=== PATIENT | female | born 2000 | race Caucasian/White ===

== ENCOUNTER 2020-11-15 08:41 | Outpatient (REF) | payer OTHER, SELFPAY | END 2020-11-15 08:42 | disposition home or self-care (01) | LOC: HO.LAB 08:41 | PROVIDERS: Visit Provider Advanced Practice Midwife | DX: Z01.419 Encounter for gynecological examination (general) (routine) without abnormal findings (principal); N94.4 Primary dysmenorrhea | CPT/HCPCS: 88142 ==

== ENCOUNTER 2021-06-04 12:40 | Outpatient (REF) | payer OTHER, SELFPAY ==
[2021-06-04 14:04] LABS: Baso%MD 0.9 %; Eos%MD 1.1 %; Hematocrit 37.1 % (37-47); Hemoglobin 12.6 g/dl (12.0-16.0); IG%MD 0.4 %; Lymph%MD 35.6 %; Mean Corpuscular Hemoglobin 29.5 pg (27.0-33.0); Mean Corpuscular Volume 86.9 fL (80-98); Mean Platelet Volume 11.1 fL (9.4-12.3); Platelet Count 233 X10*3/uL (160-400); Red Blood Count 4.27 X10*6/uL (4.20-5.50); Red Cell Distribution Width 11.9 % (11.0-16.0); White Blood Count 5.3 X10*3/uL (4.8-10.8)
[2021-06-04 14:23] LABS: Alanine Aminotransferase 14 U/L (0-31); Albumin Level 4.5 g/dL (3.5-5.0); Alkaline Phosphatase 67 U/L (39-117); Anion Gap 11 (12-20); Aspartate Amino Transferase 18 U/L (5-31); Bilirubin Total 0.5 mg/dL (0.0-1.0); Blood Urea Nitrogen 8 mg/dL (9-16); Calcium 9.6 mg/dL (8.4-10.2); Carbon Dioxide 24 mmol/L (22-29); Chloride 108 mmol/L (96-108); Estimated Glomerular Filt Rate > 60; Glucose Random 86 mg/dL (60-115); Potassium 3.8 mmol/L (3.3-5.1); Sodium 139 mmol/L (135-145); Total Protein 7.5 g/dL (6.5-8.0)
[2021-06-04 14:51] LABS: Band Neutrophils Percent 2 % (3-5); Lymphocytes Absolute Manual 1.4 X10*3/uL (0.6-4.8); Lymphocytes Percent Manual 27 % (20-40); Monocytes Absolute Manual 0.5 X10*3/uL (0.0-1.2); Monocytes Percent Manual 10 % (2-11); Neutrophils Absolute Manual 3.3 X10*3/uL (2.2-7.9); Neutrophils Percent Manual 61 % (45-73); RBC Morphology NORMAL
[2021-06-04 14:52] LABS: Erythrocyte Sedimentation Rate 5 MM/HR (0-20); Platelet Estimate NORMAL (NORMAL); Platelet Morphology Comment NORMAL
[2021-06-10 15:02] LABS: Anti Nuclear Antibody Pattern Nuclear, Speckled; Anti Nuclear Antibody Screen POSITIVE (NEGATIVE)
== END 2021-06-04 12:41 | disposition home or self-care (01) ==
LOC: HO.HMGCLDS 12:40
PROVIDERS: Visit Provider Physician Assistant Medical
DX: R23.3 Spontaneous ecchymoses (principal)
CPT/HCPCS: 36415; 80053; 85007; 85027; 85652; 86038; 86039

== ENCOUNTER → 2021-11-21 08:02 | Outpatient (BNVA) | payer OTHER, SELFPAY | PROVIDERS: Visit Provider Advanced Practice Midwife | DX: Z13.89 Encounter for screening for other disorder (principal) ==

== ENCOUNTER 2021-11-30 08:17 | Outpatient (REF) | payer OTHER, SELFPAY ==
[2021-11-30 08:46] LABS: MANUAL DIFF FLAG NO
[2021-11-30 09:41] LABS: Basophils Absolute Auto 0.1 X10*3/uL (0.0-0.2); Basophils Percent Auto 1.1 % (0-2); Eosinophils Absolute Auto 0.2 X10*3/uL (0.0-0.4); Eosinophils Percent Auto 3.2 % (0-4); Hematocrit 34.2 % (37.0-47.0); Hemoglobin 11.4 g/dl (12.0-16.0); Imm Gran Abs Auto 0.01 X10*3/uL (0.00-0.03); Imm Gran Pct Auto 0.2 % (0.0-0.4); Lymphocytes Absolute Auto 2.3 X10*3/uL (1.2-4.9); Lymphocytes Percent Auto 48.2 % (20-40); Mean Corpuscular HGB Conc 33.3 g/dl (31.0-35.0); Mean Corpuscular Hemoglobin 30.2 pg (27.0-33.0); Mean Corpuscular Volume 90.5 fL (80.0-98.0); Mean Platelet Volume 11.4 fL (9.4-12.3); Monocytes Absolute Auto 0.4 X10*3/uL (0.1-1.2); Monocytes Percent Auto 8.6 % (2-11); Neutrophils Absolute Auto 1.8 x10*3/uL (2.0-8.3); Neutrophils Percent Auto 38.7 % (45-73); Platelet Count 215 X10*3/uL (160-400); Red Blood Count 3.78 X10*6/uL (4.20-5.50); Red Cell Distribution Width 11.4 % (11.0-16.0); White Blood Count 4.8 X10*3/uL (4.8-10.8)
[2021-11-30 09:46] LABS: Appearance Urine HAZY; Color Urine YELLOW; Glucose Urine UA NEG (NEG); Leukocyte Esterase Urine NEG (NEG); Nitrite Urine NEG (NEG); PH 5.5 (5.0-8.0); Specific Gravity - Urine >= 1.030 (1.005-1.025); UACC Culture Trigger NO; Urine Blood 3+ (NEG); Urine Ketones NEG (NEG); Urine Protein NEG (NEG-TRACE)
[2021-11-30 09:53] LABS: Amorphous Sediment Urine 1+ /LPF; Mucus Urine 2+ /LPF; Squamous Epithelial Cell Urine 2+ /LPF; WBC Urine 0-2 /HPF (0-4)
[2021-11-30 10:06] LABS: Alanine Aminotransferase 13 U/L (0-31); Albumin Level 4.4 g/dL (3.5-5.0); Alkaline Phosphatase 57 U/L (39-117); Anion Gap 11 (12-20); Aspartate Amino Transferase 17 U/L (5-31); Bilirubin Total 0.4 mg/dL (0.0-1.0); Blood Urea Nitrogen 11 mg/dL (9-16); C Reactive Protein 0.03 mg/dL (< or = 0.50); Calcium 9.7 mg/dL (8.4-10.2); Carbon Dioxide 25 mmol/L (22-29); Chloride 108 mmol/L (96-108); Cholesterol 142 mg/dL; Estimated Glomerular Filt Rate > 60; Glucose Random 87 mg/dL (60-115); Potassium 3.8 mmol/L (3.3-5.1); Rheumatoid Factor < 15.0 IU/mL (<15.0); Sodium 140 mmol/L (135-145); Total Protein 7.1 g/dL (6.5-8.0)
[2021-11-30 10:19] LABS: Erythrocyte Sedimentation Rate 5 MM/HR (0-20)
[2021-11-30 10:28] LABS: TSH reflex Free T4 3.15 uIU/mL (0.32-4.0); Vitamin D 25-OH Total 25.9 ng/mL (>30)
[2021-12-03 21:16] LABS: Anti DNA DS Antibody <1 IU/mL
[2021-12-03 21:52] LABS: Anti Nuclear Antibody Screen POSITIVE (NEGATIVE)
== END 2021-11-30 08:18 | disposition home or self-care (01) ==
LOC: HO.LAB 08:17
PROVIDERS: PCP Internal Medicine; Visit Provider Internal Medicine
DX: Z00.00 Encounter for general adult medical examination without abnormal findings (principal); R76.8 Other specified abnormal immunological findings in serum; E55.9 Vitamin D deficiency, unspecified
CPT/HCPCS: 36415; 80053; 81001; 82306; 82465; 84443; 85025; 85652; 86038; 86039; 86140; 86225; 86431

== ENCOUNTER → 2021-12-20 08:54 | Outpatient (BNVA) | payer OTHER, SELFPAY | PROVIDERS: Visit Provider Advanced Practice Midwife | DX: Z13.89 Encounter for screening for other disorder (principal) ==

== ENCOUNTER → 2022-12-01 08:32 | Outpatient (BNVA) | payer OTHER, SELFPAY | PROVIDERS: PCP Advanced Practice Midwife; Visit Provider Internal Medicine Rheumatology | DX: R76.8 Other specified abnormal immunological findings in serum (principal); D64.9 Anemia, unspecified | CPT/HCPCS: 99202 ==

== ENCOUNTER 2022-12-06 08:19 | Outpatient (REF) | payer OTHER, SELFPAY ==
[2022-12-06 08:32] LABS: MANUAL DIFF FLAG NO
[2022-12-06 08:54] LABS: Basophils Absolute Auto 0.1 X10*3/uL (0.0-0.2); Basophils Percent Auto 1.5 % (0-2); Eosinophils Absolute Auto 0.3 X10*3/uL (0.0-0.4); Eosinophils Percent Auto 4.7 % (0-4); Hematocrit 36.8 % (37.0-47.0); Hemoglobin 11.9 g/dl (12.0-16.0); Imm Gran Abs Auto 0.01 X10*3/uL (0.00-0.03); Imm Gran Pct Auto 0.2 % (0.0-0.4); Lymphocytes Absolute Auto 1.7 X10*3/uL (1.2-4.9); Lymphocytes Percent Auto 31.6 % (20-40); Mean Corpuscular HGB Conc 32.3 g/dl (31.0-35.0); Mean Corpuscular Hemoglobin 27.7 pg (27.0-33.0); Mean Corpuscular Volume 85.6 fL (80.0-98.0); Mean Platelet Volume 10.4 fL (9.4-12.3); Monocytes Absolute Auto 0.5 X10*3/uL (0.1-1.2); Monocytes Percent Auto 9.8 % (2-11); Neutrophils Absolute Auto 2.8 x10*3/uL (2.0-8.3); Neutrophils Percent Auto 52.2 % (45-73); Platelet Count 233 X10*3/uL (160-400); Red Cell Distribution Width 12.1 % (11.0-16.0); White Blood Count 5.3 X10*3/uL (4.8-10.8)
[2022-12-06 09:27] LABS: Iron 29 mcg/dL (30-160); Percent Iron Saturation 10 % (15-50); Total Iron Binding Capacity 298 mcg/dL (228-428); Unsaturated Iron Binding 269 ug/dL
[2022-12-06 09:51] LABS: Vitamin B12 895 pg/mL (200-900)
[2022-12-08 17:37] LABS: Haptoglobin 143 mg/dL (43-212)
== END 2022-12-06 08:20 | disposition home or self-care (01) ==
LOC: HO.LAB 08:19
PROVIDERS: Internal Medicine Rheumatology; PCP Internal Medicine; Visit Provider Internal Medicine
DX: D64.9 Anemia, unspecified (principal); R76.8 Other specified abnormal immunological findings in serum
CPT/HCPCS: 36415; 82607; 83010; 83540; 85025

== ENCOUNTER → 2023-02-11 10:43 | Outpatient (BNVA) | payer OTHER, SELFPAY | PROVIDERS: PCP Internal Medicine; Visit Provider Advanced Practice Midwife ==

== ENCOUNTER 2023-09-19 07:53 | Outpatient (REF) | payer OTHER, SELFPAY ==
[2023-09-19 08:17] LABS: MANUAL DIFF FLAG NO
[2023-09-19 08:22] LABS: Basophils Absolute Auto 0.1 X10*3/uL (0.0-0.2); Eosinophils Absolute Auto 0.1 X10*3/uL (0.0-0.4); Eosinophils Percent Auto 2.6 % (0-4); Hematocrit 35.3 % (37.0-47.0); Imm Gran Abs Auto 0.02 X10*3/uL (0.00-0.03); Imm Gran Pct Auto 0.4 % (0.0-0.4); Lymphocytes Percent Auto 19.9 % (20-40); Mean Corpuscular Hemoglobin 29.5 pg (27.0-33.0); Mean Corpuscular Volume 86.7 fL (80.0-98.0); Mean Platelet Volume 10.2 fL (9.4-12.3); Monocytes Absolute Auto 0.4 X10*3/uL (0.1-1.2); Monocytes Percent Auto 7.4 % (2-11); Neutrophils Absolute Auto 3.5 x10*3/uL (2.0-8.3); Neutrophils Percent Auto 68.7 % (45-73); Platelet Count 252 X10*3/uL (160-400); Red Blood Count 4.07 X10*6/uL (4.20-5.50); Red Cell Distribution Width 12.5 % (11.0-16.0)
[2023-09-19 09:04] LABS: Appearance Urine Clear; Color Urine Dark Yellow; Glucose Urine UA Negative (Negative); Leukocyte Esterase Urine Negative (Negative); Nitrite Urine Negative (Negative); PH 5.5 (5.0-9.0); Specific Gravity - Urine >= 1.030 (1.005-1.025); Urine Blood Negative (Negative); Urine Ketones Negative (Negative); Urine Protein Negative (Neg-Trace)
[2023-09-19 09:21] LABS: Alanine Aminotransferase 14 U/L (0-31); Albumin Level 4.3 g/dL (3.5-5.0); Alkaline Phosphatase 68 U/L (39-117); Anion Gap 12 (12-20); Aspartate Amino Transferase 17 U/L (5-31); Bilirubin Total 0.6 mg/dL (0.0-1.0); Blood Urea Nitrogen 9 mg/dL (9-16); Calcium 9.4 mg/dL (8.4-10.2); Carbon Dioxide 24 mmol/L (22-29); Chloride 107 mmol/L (96-108); Cholesterol 146 mg/dL (<200); Estimated Glomerular Filt Rate > 60; Glucose Fasting 88 mg/dL (60-99); HDL Cholesterol 47 mg/dL (>40); LDL Cholesterol Calculated 89 mg/dL (<100); Potassium 3.7 mmol/L (3.3-5.1); Sodium 139 mmol/L (135-145); Total Protein 7.4 g/dL (6.5-8.0); Triglycerides 53 mg/dL (<150)
[2023-09-19 09:37] LABS: TSH reflex Free T4 1.14 uIU/mL (0.32-4.0); Vitamin D 25-OH Total 11.3 ng/mL (>30)
[2023-09-20 05:01] LABS: ~Hepatitis B Surface Antibody NONREACTIVE (Nonreactive)
[2023-09-21 21:39] LABS: Mumps Virus IgG Antibody >300.00 AU/mL
== END 2023-09-19 07:54 | disposition home or self-care (01) ==
LOC: HO.LAB 07:53
PROVIDERS: PCP Internal Medicine; Visit Provider Internal Medicine
DX: Z00.00 Encounter for general adult medical examination without abnormal findings (principal); E55.9 Vitamin D deficiency, unspecified; R30.0 Dysuria; Z28.39 Other underimmunization status
CPT/HCPCS: 36415; 80053; 80061; 81003; 82306; 84443; 85025; 86706; 86735; 86762; 86765; 86787

== ENCOUNTER 2023-09-28 17:09 | Outpatient (REF) | payer OTHER, SELFPAY | END 2023-09-28 17:10 | disposition home or self-care (01) | LOC: HO.LAB 17:09 | PROVIDERS: PCP Internal Medicine; Visit Provider Internal Medicine | DX: Z13.89 Encounter for screening for other disorder (principal) ==

== ENCOUNTER 2023-09-29 16:42 | Outpatient (REF) | payer OTHER, SELFPAY ==
[2023-10-02 08:48] LABS: TS Negative Control Passed; TS Panel A 0; TS Panel B 0; TS Positive Control Passed; TSpotTB Negative (Negative)
== END 2023-09-29 16:43 | disposition home or self-care (01) ==
LOC: HO.LAB 16:42
PROVIDERS: PCP Internal Medicine; Visit Provider Internal Medicine
DX: Z11.1 Encounter for screening for respiratory tuberculosis (principal)
CPT/HCPCS: 36415; 86481

== ENCOUNTER 2023-11-04 08:51 | Outpatient (AMB) | payer OTHER, SELFPAY ==
[2023-11-04 08:54] VITALS: BP 108/70; PULSE 75; O2SAT 99; BMI 20.7
--- NOTE | 2023-11-04 08:54 | MHC.PC.OV ---
Vital Signs 11/04/23 08:54 Height 5 ft 3 in Weight 117 lb 0.4 oz BMI 20.7 BP 108/70 Blood Pressure Location Lt brachial Position Sitting Pulse 75 Pulse Source Pulse Oximeter Pulse Oximetry (%) 99 Oxygen Delivery Method Room Air Intake Visit Reasons: Annual Exam Intake Note: Patient is here today for a physical. 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 Allergies No Known Allergies Allergy (Verified 11/04/23 10:00) Medication List - Last Reconciled 11/04/23 by Johnny Pascual MD cholecalciferol (vitamin D3) 50 mcg PO DAILY 90 days naproxen 250 mg (1/2 x 500 mg) PO Q8H PRN Tobacco use date assessed: 11/04/23 Dental Screening Dental Screen Date: 11/04/23 Did you have a dental visit in the last 12 months?: Yes Did you have a dental problem in the last 6 months where you did not have access to dental care?: No Was dental information given to patient?: Patient has dentist HPI Annual Exam HPI Details Patient comes in today for her annual physical examination States that she feels well She denies any headaches or dizziness Denies any chest pains, no SOB No nausea/vomiting, no abdominal pain No change in bowel habits noted Denies any acute urinary symptoms Had her follow up labs done last month - to discuss her results States that her periods are regular and she is up-to-date with her annual gynecologic exam and pap smear - 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 Social History Housing: House Alcohol intake: never Patient Tobacco Use Status: Never used Tobacco Second Hand Smoke Exposure: No service: No Current occupational status: employed Gender identity: Female Cognitive needs: No Hearing needs: No Vision needs: No Female Reproductive History Menstrual Age of Menarche: 13 Questionnaire PHQ-9 Over the last 2 weeks, how often have you been bothered by any of the following problems? 1. Little interest or pleasure in doing things: not at all 2. Feeling down, depressed, or hopeless: not at all 3. Trouble falling or staying asleep, or sleeping too much: not at all 4. Feeling tired or having little energy: not at all 5. Poor appetite or overeating: not at all 6. Feeling bad about yourself - or that you are a failure or have let yourself or your family down: not at all 7. Trouble concentrating on things, such as reading the newspaper or watching television: not at all 8. Moving or speaking so slowly that other people could have noticed. Or the opposite - being so fidgety or restless that you have been moving around a lot more than usual: not at all 9. Thoughts that you would be better off or of hurting yourself in some way: not at all Total score: 0 Depression Screening Interpretation: Negative Depression Screening Done: Yes 07263 - PHQ-9 Billing: Yes Source: Developed by Drs. Medardo Singh, Kristine Ventura, Ramón Castañeda and colleagues, with an educational tanya from [employer]. Thrive Questionnaire Date Thrive assessed: 11/04/23 I am a: Patient What is your living situation today?: I have a steady place to live Within the past 12 months, did the food you bought not last and you didn't have the money to get more?: Never true Within the past 12 months, did you worry whether your food would run out before you got money to buy more?: Never true Do you have trouble paying for medicines?: No Do you have trouble getting transportation to medical appointments?: No Do you have trouble paying your heating and electricity bill?: No Do you have trouble taking care of your child, family member or friend?: No Do you have trouble with day-to-day activities such as bathing, preparing meals, shopping, managing finances, etc.?: No Are you currently unemployed and looking for a job?: No Are you interested in more education?: No Please select the resources that you would like help with: None Currently or been in a relationship where the following occur: no concerns reported THRIVE Score: 0 AUDIT C Alcohol Use Questionnaire (AUDIT-C) 1. How often do you have a drink containing alcohol?: Never 3. How often do you have six or more drinks on one occasion?: Never Total Score: 0 Score Reviewed/Action Taken: Yes JOSE-7 AMB Questionnaire JOSE-7 Date JOSE - 7 assessed: 11/04/23 Feeling nervous, anxious, or on edge: 0 = Not at all Not being able to stop or control worryin = Not at all Worrying too much about different things: 0 = Not at all Trouble relaxin = Not at all Being so restless that it is hard to sit still: 0 = Not at all Becoming easily annoyed or irritable: 0 = Not at all Feeling afraid as if something awful might happen: 0 = Not at all Total JOSE-7 score (0-4 normal; 5-9 mild; 10-14 moderate; 15-21 severe): 0 Source: Developed by Drs. Medardo Singh, Kristine Ventura, Ramón Castañeda and colleagues, with an educational tanya from [employer]. Review of Systems Const Denies chills, Denies fatigue, Denies fever(s), Denies headache(s) and Denies malaise Eyes Denies blurry vision, Denies change in vision, Denies irritation and Denies itchy eyes ENT Denies dysphagia, Denies dizziness, Denies otalgia, Denies headache(s), Denies nasal congestion, Denies neck pain, Denies odynophagia, Denies sinus pain and Denies sore throat Card Denies chest pain, Denies rapid heart rate, Denies irregular heart rhythm, Denies palpitations and Denies dyspnea Resp Denies chest congestion, Denies cough, Denies dyspnea and Denies wheezing GI Denies abdominal pain, Denies bloating, Denies constipation, Denies dysphagia, Denies heartburn, Denies diarrhea, Denies nausea, Denies odynophagia and Denies vomiting Denies hematuria, Denies urinary frequency, Denies dysuria, Denies urinary incontinence and Denies urinary urgency Musc Denies back pain, Denies arthralgias, Denies joint swelling, Denies muscle weakness and Denies neck pain Skin/Breast Denies breast pain, Denies breast mass, Denies change in pigmentation, Denies lesions, Denies rash and Denies unusual bruising Neuro Denies dizziness, Denies headache(s) and Denies paresthesias Psych Denies anxiety and Denies depression Endo Denies fatigue and Denies palpitations Chris/Lymph Denies easy bruising Aller/Immun Denies itchy eyes and Denies wheezing Physical exam (Primary Care) Vital Signs: Last Vital Signs Pulse 75 11/04/23 08:54 BP 108/70 11/04/23 08:54 Pulse Ox 99 11/04/23 08:54 Oxygen Delivery Method Room Air 11/04/23 08:54 BMI result Body Mass Index 20.7 Tobacco/Smoking Status: Tobacco use Status Tobacco use date assessed 11/04/23 11/04/23 08:55 Patient Tobacco Use Status Never used Tobacco 11/04/23 08:54 PHQ-9: PHQ-9 Score PHQ-9: Total score 0 11/04/23 09:07 Depression Screening Interpretation: Negative Thrive Assessment: Date of Thrive Assessment Date Thrive assessed 11/04/23 11/04/23 08:55 Currently or been in a relationship where the following occur: no concerns reported Const General: no acute distress, alert and awake Orientation/consciousness: patient oriented x3 HENMT Head: Yes normocephalic and Yes atraumatic Ears: external ears normal, TM's normal bilaterally and EAC's normal General nose exam: No nasal discharge present Face and sinus: Yes normal facial exam and Yes sinuses nontender Teeth and gingiva: dentition normal Throat: Yes posterior oropharynx normal and Yes tonsils normal (no TP congestion) Eyes Eyelids: Yes eyelids normal Conjunctivae: conjunctivae normal Pupils: Equal, round and reactive pupils present EOM: EOMs intact bilaterally Neck Neck: Yes no lymphadenopathy and Yes supple Thyroid: Thyroid normal Resp Auscultation: clear to auscultation bilaterally, no rales and no wheezes Cardio Rate: regular rate Rhythm: regular rhythm Heart sounds: no murmurs GI Palpation (GI): Soft to palpation, nontender and No hepatosplenomegaly present Auscultation: normal bowel sounds General: Yes no CVA tenderness Back/Spine/Pelvis Back: no CVA tenderness Thoracic/Lumbar Spine: thoracic and lumbar spine normal to inspection Skin Lesions: no lesions Rashes: no rashes Neuro General: patient oriented x3, moves all extremities, no focal motor deficits and CN's II-XI intact bilaterally Cranial nerves: Yes Equal, round and reactive pupils present Cognition (Neuro): normal cognition Gait exam (Neuro): Normal gait present Extrem General: Yes no clubbing, cyanosis or edema Results Reviewed Results Reviewed: Laboratory Tests 09/19/23 09/19/23 09/19/23 08:14 08:14 08:14 WBC Hgb Hct Plt Count Sodium Potassium Creatinine Estimated GFR Fasting Glucose Calcium AST ALT Triglycerides Cholesterol LDL Cholesterol, Calc HDL Cholesterol 25-OH Vitamin D Total TSH Ur Specific [place] >= 1.030 H Urine Protein Negative Urine Glucose (UA) Negative Urine Blood Urine Nitrite Ur Leukocyte Esterase Negative Hep Bs Antibody Mumps Virus IgG Ab Rubella IgG Antibody Rubeola (Measles) IgG TB Test (T-Spot) Com VZV IgG Antibody 09/19/23 09/19/23 09/19/23 08:14 08:15 08:15 WBC 5.0 Hgb 12.0 Hct 35.3 L Plt Count 252 Sodium 139 Potassium 3.7 Creatinine 0.84 Estimated GFR > 60 Fasting Glucose 88 Calcium 9.4 AST 17 ALT 14 Triglycerides 53 Cholesterol 146 LDL Cholesterol, Calc 89 HDL Cholesterol 47 25-OH Vitamin D Total 11.3 L TSH 1.14 Ur Specific [place] Urine Protein Urine Glucose (UA) Urine Blood Negative Urine Nitrite Negative Ur Leukocyte Esterase Hep Bs Antibody Mumps Virus IgG Ab Rubella IgG Antibody Rubeola (Measles) IgG TB Test (T-Spot) Com VZV IgG Antibody 09/19/23 09/19/23 09/19/23 08:15 08:15 08:15 WBC Hgb Hct Plt Count Sodium Potassium Creatinine Estimated GFR Fasting Glucose Calcium AST ALT Triglycerides Cholesterol LDL Cholesterol, Calc HDL Cholesterol 25-OH Vitamin D Total TSH Ur Specific [place] Urine Protein Urine Glucose (UA) Urine Blood Urine Nitrite Ur Leukocyte Esterase Hep Bs Antibody NONREACTIVE Mumps Virus IgG Ab >300.00 Rubella IgG Antibody 11.00 Rubeola (Measles) IgG 87.50 TB Test (T-Spot) Com VZV IgG Antibody 303.30 09/29/23 16:48 WBC Hgb Hct Plt Count Sodium Potassium Creatinine Estimated GFR Fasting Glucose Calcium AST ALT Triglycerides Cholesterol LDL Cholesterol, Calc HDL Cholesterol 25-OH Vitamin D Total TSH Ur Specific [place] Urine Protein Urine Glucose (UA) Urine Blood Urine Nitrite Ur Leukocyte Esterase Hep Bs Antibody Mumps Virus IgG Ab Rubella IgG Antibody Rubeola (Measles) IgG TB Test (T-Spot) Com Negative VZV IgG Antibody Assessment and Plan Assessment & Plan (1) Annual physical exam: Code(s): Z00.00 - Encounter for general adult medical examination without abnormal findings Plan: Results of her labs done last month reviewed and discussed with patient She is up-to-date with her annual gynecology exam and pap smear and is scheduled for her follow up gynecology exam in February 2024 (2) Vitamin D deficiency: Code(s): E55.9 - Vitamin D deficiency, unspecified Plan: She is advised that her Vitamin D level is again very low on her recent labs Will start her back on Vitamin D3 2000 units QD and she is instructed to continue taking this and not stop it until she is instructed to stop Will recheck her Vitamin D level in 1 year for follow up (3) Positive FLOWER (antinuclear antibody): Code(s): R76.8 - Other specified abnormal immunological findings in serum Plan: Currently asymptomatic, with no rash and no joint pain symptoms Patient has tested positive for FLOWER twice last year and was referred to rheumatology for further evaluation Dr. Carvajal evaluated patient and has reassured her that she does NOT have lupus (double-stranded DNA test came back negative) or any other inflammatory joint diseases and need to just follow up with rheumatology on an as-needed basis Plan To return in 1 year for her next annual physical examination Patient is reminded to again get her follow up labs done BEFORE she returns for her next appt Orders: Orders UA CC w/rflx Micro + Cult 360 Days R30.0 - Dysuria, Z00.00 - Encounter for general adult medical examination without abnormal findings Cholesterol 360 Days Z00.00 - Encounter for general adult medical examination without abnormal findings Complete Blood Count Auto Diff 360 Days D64.9 - Anemia, unspecified, Z00.00 - Encounter for general adult medical examination without abnormal findings TSH reflex Free T4 360 Days E78.00 - Pure hypercholesterolemia, unspecified, Z00.00 - Encounter for general adult medical examination without abnormal findings Vitamin D 25-OH Total 360 Days E55.9 - Vitamin D deficiency, unspecified, Z00.00 - Encounter for general adult medical examination without abnormal findings Comprehensive Met. Panel 360 Days Z00.00 - Encounter for general adult medical examination without abnormal findings Medications: Changed From cholecalciferol (vitamin D3) 25 mcg PO DAILY 90 tabs 0RF E55.9 - Vitamin D deficiency, unspecified To cholecalciferol (vitamin D3) 50 mcg PO DAILY 90 days 90 tabs 3RF E55.9 - Vitamin D deficiency, unspecified Coding Level of Care Code Est Pt Prev Care 18-39y(66350) Diagnoses Annual physical exam Z00.00 Vitamin D deficiency E55.9 Positive FLOWER (antinuclear antibody) R76.8
== END 2023-11-04 09:52 | disposition home or self-care (01) ==
PROVIDERS: PCP Internal Medicine; Visit Provider Internal Medicine
DX: Z00.00 Encounter for general adult medical examination without abnormal findings (principal); E55.9 Vitamin D deficiency, unspecified; R76.8 Other specified abnormal immunological findings in serum
CPT/HCPCS: 99395

== ENCOUNTER 2024-04-08 08:52 | Outpatient (REF) | payer OTHER, SELFPAY | END 2024-04-08 08:53 | disposition home or self-care (01) | LOC: HO.LNP 08:52 | PROVIDERS: PCP Internal Medicine; Visit Provider Advanced Practice Midwife | DX: Z01.419 Encounter for gynecological examination (general) (routine) without abnormal findings (principal) | CPT/HCPCS: 87625; 88175; 99395 ==

== ENCOUNTER 2024-04-08 08:52 | Outpatient (AMB) | payer OTHER, SELFPAY ==
[2024-04-08 09:02] VITALS: BP 96/60; BMI 20.4
--- NOTE | 2024-04-08 09:02 | A.OFFVIS_ITS ---
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 Doing well with no concerns. She tries to eat healthy and stays active with exercise-walks. Regular monthly menses. Currently is never sexually active. She denies vaginal itching and irritation. STI screening offered; she declines. Family history of breast and colon cancer. Last pap smear 2020, negative. [facility] Medical History Vitamin D deficiency Positive FLOWER (antinuclear antibody) Surgical History No pertinent past surgical history Family History (Updated 04/08/24 @ 09:05 by LAUREEN Camarillo) Mother Diabetes High blood pressure Father No problems noted. Paternal Grandmother History of breast cancer Maternal Grandfather Colon cancer Social History (Updated 04/08/24 @ 09:06 by LAUREEN Camarillo) Housing: House Alcohol intake: never Patient Tobacco Use Status: Never used Tobacco Second Hand Smoke Exposure: No service: No Current occupational status: employed Sexually active: No Gender identity: Female Cognitive needs: No Hearing needs: No Vision needs: No Female Reproductive History Menstrual Age of Menarche: 13 Duration of menses: 6-7 days Date of last menstrual period: 03/24/24 control method: none Total pregnancies: 0 Date of last pap smear: 11/15/20 (neg) Review of Systems Const All systems reviewed & are unremarkable except as noted in HPI and below Reports as per HPI Eyes Reports no additional complaints ENT Reports no additional complaints Card Reports no additional complaints Resp Reports no additional complaints GI Reports as per HPI and Reports no additional complaints Reports as per HPI Musc Reports no additional complaints Skin/Breast Reports as per HPI Neuro Reports no additional complaints Psych Reports no additional complaints Endo Reports no additional complaints Chris/Lymph Reports no additional complaints Aller/Immun Reports no additional complaints Physical Exam Vital Signs: Last Vital Signs BP 96/60 04/08/24 09:02 BMI result Body Mass Index 20.4 Const General: cooperative, healthy appearing, no acute distress, well developed and alert Orientation/consciousness: patient oriented x3 HEENT Head: Yes normal to inspection Eyes General: appearance normal, both eyes and all related structures Neck Neck: Yes normal visual inspection Thyroid: Thyroid normal Chest Chest palpation & inspection: normal inspection of the chest and other (no puckering, dimpling, peau de orange, retraction, discharge, masses) Breast/axilla inspection: normal inspection of the breasts Breast/axilla palpation: normal palpation of the breasts Resp Effort & Inspection: normal respiratory effort GI Inspection: Yes normal to inspection Palpation (GI): Soft to palpation Rectal Exam - Female: deferred Other: tensing w/exam General: Yes bladder normal to palpation External Female Exam: normal external appearance and normal appearance of the urethra Speculum Exam - Vagina: normal appearance of the vagina, normal palpation and normal vaginal discharge Speculum Exam - Cervix: normal appearance of the cervix, normal palpation and Other cervical findings present (bled w/pap) Bimanual exam- vagina & uterus: normal bimanual exam, normal palpation, uterine size normal, bladder normal to palpation, normal palpation and non-tender Bimanual Exam- Adnexa, other: no masses Skin General skin exam: no rashes or lesions noted Rashes: no rashes Neuro General: patient oriented x3 Cognition (Neuro): normal cognition Extrem General: Yes normal to inspection Psych Attitude: cooperative Thought process: Normal thought process present Assessment & Plan Assessment & Plan (1) Well woman exam with routine gynecological exam: Code(s): Z01.419 - Encounter for gynecological examination (general) (routine) without abnormal findings Category: Medical Plan Discussed: Current recommendations for pap smears per ASCCP guidelines. Pap obtained. Breast awareness and periodic breast exams. Maintain a healthy lifestyle including a well balanced diet and routine exercise. Use condoms for STI and prevention. Patient verbalizes understanding and agrees to the plan of care. She was given opportunity to ask questions and all questions were answered to the best of my ability. RTO in one year for annual portrait painter examination. This note is constructed using voice recognition software. While every effort has been made to ensure accuracy, window systems administrator errors may have been included. Coding Level of Care Code Est Pt Prev Care 18-39y(34991) Diagnoses Well woman exam with routine gynecological exam Z01.419
== END 2024-04-08 09:46 | disposition home or self-care (01) ==
PROVIDERS: PCP Internal Medicine; Visit Provider Advanced Practice Midwife
DX: Z01.419 Encounter for gynecological examination (general) (routine) without abnormal findings (principal)
CPT/HCPCS: 99395

== ENCOUNTER 2024-10-18 09:03 | Outpatient (AMB) | payer OTHER, SELFPAY ==
[2024-10-18 09:12] VITALS: BP 102/68; PULSE 81; RESP 16; TEMP 36.9; O2SAT 98; BMI 20.6
--- NOTE | 2024-10-18 09:12 | MHC.OFFWIV ---
Intake Vital Signs 10/18/24 09:12 Height 5 ft 3 in Weight 116 lb 6 oz BMI 20.6 BP 102/68 Blood Pressure Location Rt brachial Position Sitting Respiration 16 Pulse 81 Pulse Source Pulse Oximeter Temp 98.5 F Temp Source Oral Pulse Oximetry (%) 98 Oxygen Delivery Method Room Air Intake Visit Reasons: EP-rt pink eye Patient Tobacco Use Status: Never used Tobacco Allergies No Known Allergies Allergy (Verified 10/18/24 09:15) Medication List - Last Reconciled 10/18/24 by Fadia Hamm MD cholecalciferol (vitamin D3) 50 mcg PO DAILY 90 days naproxen 250 mg (1/2 x 500 mg) PO Q8H PRN Do you need a note to return to daycare/school/sports/work: No HPI EP-rt pink eye HPI Details Chief Complaint The patient presents with red eye and discharge on the right side. History of Present Illness - The patient is a 23-year-old female presenting with eye discharge and redness. - The onset of symptoms was on Thursday, initially perceived as blurred vision due to possible eye strain. - Progression included eyelid crusting upon waking, with notable discharge and redness, suggesting acute onset conjunctivitis. - Prior self-treatment involved warm compresses, suspecting a sty. - No contact lens use is reported, and the patient's vision is stable aside from initial blurriness. Plan The assessment is consistent with bacterial conjunctivitis given the discharge and presentation. Antibiotic eye drops have been prescribed to be obtained from the pharmacy. The patient should experience symptom relief within 24 to 48 hours. Further worsening of symptoms would necessitate repeat consultation. The patient is advised on maintaining hand hygiene to reduce contagion, with consideration to seek an ophthalmic consultation if necessary. Patient Instructions - Obtain and use prescribed antibiotic eye drops from the pharmacy. - Expect symptom improvement within 24 to 48 hours. - If symptoms worsen, contact the medical office immediately. - Avoid touching or rubbing the eyes to reduce spread. - Maintain good hand hygiene. - If an stringer up soldering machine is available, consider contacting for further advice if needed. Review of Systems - Ophthalmic: Reports redness and discharge in the right eye since Thursday. - Vision: Denies disruption to vision aside from initial blurriness. 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 Paternal Grandmother History of breast cancer Maternal Grandfather Colon cancer Social History Housing: House Alcohol intake: never Patient Tobacco Use Status: Never used Tobacco Second Hand Smoke Exposure: No service: No Current occupational status: employed Gender identity: Female Cognitive needs: No Hearing needs: No Vision needs: No Female Reproductive History Menstrual Age of Menarche: 13 Physical Exam Vital Signs: Last Vital Signs Temp 98.5 F 10/18/24 09:12 Pulse 81 10/18/24 09:12 Resp 16 10/18/24 09:12 BP 102/68 10/18/24 09:12 Pulse Ox 98 10/18/24 09:12 Oxygen Delivery Method Room Air 10/18/24 09:12 BMI result Body Mass Index 20.6 Const General: no acute distress Orientation/consciousness: patient oriented x3 Eyes Other: right eye conj injected with crusting on eye lashes JOHANNA, EOMI no pain with palpation, no discomfort with light Resp Effort & Inspection: normal respiratory effort and able to speak in complete sentences Neuro General: patient oriented x3 Psych Mental Status: mental status grossly normal Assessment & Plan Assessment & Plan (1) Acute conjunctivitis of right eye: Code(s): H10.31 - Unspecified acute conjunctivitis, right eye Qualifiers: Acute conjunctivitis type: unspecified Qualified Code(s): H10.31 - Unspecified acute conjunctivitis, right eye Plan Chief Complaint The patient presents with red eye and discharge on the right side. History of Present Illness - The patient is a 23-year-old female presenting with eye discharge and redness. - The onset of symptoms was on Thursday, initially perceived as blurred vision due to possible eye strain. - Progression included eyelid crusting upon waking, with notable discharge and redness, suggesting acute onset conjunctivitis. - Prior self-treatment involved warm compresses, suspecting a sty. - No contact lens use is reported, and the patient's vision is stable aside from initial blurriness. Plan The assessment is consistent with bacterial conjunctivitis given the discharge and presentation. Antibiotic eye drops have been prescribed to be obtained from the pharmacy. The patient should experience symptom relief within 24 to 48 hours. Further worsening of symptoms would necessitate repeat consultation. The patient is advised on maintaining hand hygiene to reduce contagion, with consideration to seek an ophthalmic consultation if necessary. Patient Instructions - Obtain and use prescribed antibiotic eye drops from the pharmacy. - Expect symptom improvement within 24 to 48 hours. - If symptoms worsen, contact the medical office immediately. - Avoid touching or rubbing the eyes to reduce spread. - Maintain good hand hygiene. - If an stringer up soldering machine is available, consider contacting for further advice if needed. Medications: New polymyxin B sulf-trimethoprim 10,000 unit- 1 mg/mL while awake; do not exceed 6 doses in 24 hours 1 drp ophthalmic (eye) QID 10 mL 0RF 5 days Coding Level of Care Code Est Pt Level 3 (08679) Diagnoses Acute conjunctivitis of right eye, unspecified acute conjunctivitis type H10.31 Acute conjunctivitis type: unspecified
== END 2024-10-18 09:23 | disposition home or self-care (01) ==
PROVIDERS: PCP Internal Medicine; Visit Provider Internal Medicine
DX: H10.31 Unspecified acute conjunctivitis, right eye (principal)

== ENCOUNTER → 2024-10-18 09:03 | Outpatient (BNVA) | payer OTHER, SELFPAY | PROVIDERS: PCP Internal Medicine ==

== ENCOUNTER 2024-10-29 07:12 | Outpatient (REF) | payer OTHER, SELFPAY ==
--- OUTSIDE RECORDS SUMMARY | 2024-10-29 07:15 | XMS_ITS | Encounter Summary ---
Author Organization [facility] Address [address] [place] [phone] Phone Care Team Providers Care Medical Scientific Liaison Name Role Phone Unavailable Primary Care Provider Unavailabl e Encounter Details Date Type Department Care Team (Late st Contact Info) Description 01/16/2014 Documentation [facility] [place] [facility] [address] Family Medicine, Physician [address] [place] [phone] Social History Tobacco Use Types Packs/Day Years Used Date Smoking Tobacco: Never Assessed Comments Unknown Sex and Gender Information Value Date Recorded Sex Assigned at Not on file Legal Sex Female 5:16 PM EDT Gender Identity Female 04/30/2020 10:09 AM EDT Sexual Orientation Not on file documented as of this encounter Plan of Treatment Not on file documented as of this encounter Visit Diagnoses Not on filedocumented in this encounter
--- OUTSIDE RECORDS SUMMARY | 2024-10-29 07:15 | XMS_ITS | Encounter Summary ---
Author Organization [facility] Address [address] [place] [address] Phone Care Team Providers Care Director Patient Financial Services Name Role Phone Unavailable Primary Care Provider Unavailabl e Encounter Details Date Type Department Care Team (Late st Contact Info) Description 03/29/2015 [place] [facility] [place] [facility] [address] Family Medicine, Physician [address] [place] [phone] Social History Tobacco Use Types Packs/Day Years [...]
--- OUTSIDE RECORDS SUMMARY | 2024-10-29 07:15 | XMS_ITS | Clinical Summary ---
Author Organization [facility] Address [address] [place] [phone] Phone Care Team Providers Care Head Automatic Sawyer Name Role Phone Unavailable Primary Care Provider Unavailabl e Allergies No known active allergies Medications ibuprofen 200 MG tablet TAKE 2 TABLETS BY MOUTH EVERY 6 HOURS NEEDED FOR PAIN OR FEVER *NOT COVERED OTC* 0 07/05/2019 Active naproxen 500 MG tabletIndicatio ns:Dysmenorrhea Take 0.5 tablets (250 mg total) by mouth every 8 (eight) hours as needed for mild pain or moderate pain (Take with food). 30 tablet 1 05/07/2020 Active Active Problems Problem Noted Date Diagnosed Date Need for case management follow-up 05/07/2020 Overview (05/07/2020): 05/07/2020 : Jay who is 19yr was seen today during the covid 19 pandemic. When the pandemic subsides, she needs A Physical exam to follow up on virtual visit done today, Age appropriate vital signs, Age appropriate, 19yr, immunizations, Age appropriate Vision +/- hearing screening, GC/Chlamydia screening Needs flu shot Dysmenorrhea 05/07/2020 Overview (05/07/2020): Naproxen as needed Immunizations Immunization Administration Dates Next Due DTaP 5 11/03/2003, 1,05/05/2000,03/04,01/03/2000 H1N1 10/02/2009,07/31/2009 HPV, Quadrivalent 04/19/2012,06/20/2011,04/16/20 11 Hep A, ped/adol 01/11/2016,07/21/2014 Hep B, ped/adol 08/10/2000,01/03/2000,1999 Hib (PRP-T) 02/24/2001, 0,03/04/2000,01/02 IPV 11/03/2003, 0,03/04/2000,01/02 Influenza Split 07/18/2013, 2,06/10/2011,05/23 Influenza, injectable, quadr ivalent, preservative free 07/05/2019,06/03/2018,07/27/2017,05/26,05/25/2015 Influenza, injectable, trivalent 009,05/26/2008,06/22/2007,06/23 Influenza, intranasal, quadrivalent 06/20/2014 MMR 11/03/2003,11/24/2000 Meningococcal B Trumenba 11/04/2019,05/04/2019 Meningococcal Conj (Menactra) MCV4P 01/16/2017,0 04/16/2011 Pneumococcal Conjugate 02/24/2001,1999,06/23/2000,05/05 Tdap 04/16/2011 Varicella 01/28/2008,11/24/2000 Family History Medical History Relation Name Comments ADD / ADHD Brother Kishna Asthma Brother Kishan Asthma Father Amir Asthma Half-Brother Milton Alvarezsus Diabetes Mother Emely Antonio Hypertension Mother Emely Antonio Irritable bowel syndrome Mother Emely Antonio Migraines Mother Emely Antonio Relation Name Status Comments Brother Kishan Alive Father Amir Alive Half-Brother Miltonmona Alvarezsus Alive Maternal Grandfather materna l grandparent: Asthma Maternal Grandmother Materna l grandmother: Migraines Maternal Great-Grandmother M GGM: Diabetes mellitus Mother Emely Antonio Alive Social History Tobacco Use Types Packs/Day Years Used Date Smoking Tobacco: Never Smokeless Tobacco: Never Tobacco Cessation:Counseling Given: Yes Comments:Never smoker Alcohol Use Standard Drinks/Week Comments No 0 (1 standard drink = 0.6 oz pur e alcohol) Hunger/Food Answer Date Recorded In the last 12 months, did y ou or your family ever eat less than you felt you should because there wasn't enough money for food? No 04/30/2020 Stable Housing Answer Date Recorded Are you worried that in the next 2 months you may not have stable housing? No 04/30/2020 Transportation Concerns Answer Date Rec orded In the last 12 months, have you or your family ever had to go without healthcare because you didn't have a way to get there? No 04/30/2020 Hazards in Home Answer Date Recorded Think about the place you li ve. Do you have problems with any of the following? Pests (mice or roaches), mold, no/not working smoke detectors, water leaks, no window guards. No 2019 Financing Utilities Answer Date Recorde d In the last 12 months, has t he electric, gas, oil, or water company threatened to shut off your services in your home? No 04/30/2020 Safety at Home Answer Date Recorded Are you or your family worried about feeling saf e in your home? No 04/30/2020 Outside Support Answer Date Recorded Do you feel that you need mo re support from other people or programs to help you care for yourself or your family? No 04/30/2020 Understanding Health Concerns Answer Da te Recorded Do you need help understandi ng your or your child's healthcare needs (diagnosis, medications, plan, etc.)? No 04/30/2020 Financing Health Concerns Answer Date R ecorded In the last 12 months, was t here a time when your child needed to see a doctor or get medications or supplies but could not because of cost? No 04/30/2020 Missing School or Work Answer Date Masoud rded Did you or your child miss s chool or work because of a health problem that could have been avoided? No 04/30/2020 Comments No Sex and Gender Information Value Date Recorded Sex Assigned at Not on file Legal Sex Female 5:16 PM EDT Gender Identity Female 04/30/2020 10:09 AM EDT Sexual Orientation Not on file Last Filed Vital Signs Vital Sign Reading Time Taken Comments Blood Pressure 106/71 05/04/2019 9:02 AM EDT Pulse 83 05/04/2019 9:02 AM EDT Temperature 36.7 ??C (98 ??F) 05/07/2020 3:5 0 PM EDT Respiratory Rate - - Oxygen Saturation - - Inhaled Oxygen Concentration - - Weight 46.4 kg (102 lb 6.4 oz) 05/07/2020 3:50 PM EDT pt weighed herself at home Height 160.7 cm (5' 3.25 ) 05/07/2020 3 :50 PM EDT Body Mass Index 18 05/07/2020 3:50 PM EDT Plan of Treatment Health Maintenance Due Date Last Done Comments DTaP,Tdap,and Td Vaccines (7 - Td or Tdap) 04/16/2021 04/16/2011, 11/03/2003, 06/25/2001, Additional history exists Influenza Vaccines (#1) 2024 07/05/20 22, 08/27/2021, 07/05/2019, Additional history exists COVID-19 Vaccine (2023-2 5 season) 2024 02/09/2021, 01/19/2021 Hepatitis B Vaccines Completed 08/10/2000, 01/03/2000, 1999 HIB Vaccines Completed 02/24/2001, 04/08, 03/04/2000, Additional history exists Pneumococcal Vaccine Completed 02/24/2001, 08/10/2000, 06/23/2000, Additional history exists IPV Vaccines Completed 11/03/2003, 04/08, 03/04/2000, Additional history exists MMR Vaccines Completed 11/03/2003, 11/24/2000 Varicella Vaccines Completed 01/28/2008, 11/24/2000 HPV Vaccines Completed 04/19/2012, 06/07, 04/16/2011 Hepatitis A Vaccines Completed 01/11/2016, 07/21/20 14 Meningococcal Vaccine Completed 01/16/2017, 011 Men B Vaccine Completed 11/04/2019, 05/04/2019 Procedures * Due to [place] Smartsheet law, this organization might not be sharing sensitive test results. Procedure Name Priority Date/Time Associated Diagnosis Comments CHLAMYDIA AND GONORRHEA, AMPLIFIED Routine 05/04/2019 9:08 AM EDT Screening examination for bacterial and spirochetal disease from Last 3 Months or Most Recently Relevant to Health Maintenance Results * Due to [place] Smartsheet law, this organization might not be sharing sensitive test results. * Chlamydia and Gonorrhoea, Amplified (05/04/2019 9:08 AM EDT) Chlamydia Trachomatis, DNA Probe NEGATIVE (NEG) [facility] Comment: No Chlamydia Trachomatis RNA detected in this patient's sample ? (REFERENCE RANGE/NORMAL VALUE: NOT DETECTED) ? Note: This test uses sales promotion manager- mediated amplification method to detect rRNA from C. Trachomatis URINE GC AMP PROBE NEGATIVE (NEG) [facility] Comment: No Neisseria Gonorrhoeae RNA detected in this patient's sample ? (REFERENCE RANGE/NORMAL VALUE: NOT DETECTED) ? NOTE: This test uses sales promotion manager-mediated amplification method to detect rRNA from N.Gonorrhoeae. A negative result does not preclude infection. In the case of a negative urine result, testing of an endocervical(female) or urethral (male) specimen is recommended if there is high clinical suspicion of infection. Due to very high sensitivity of Nucleic Acid Amplification Test, false positive results may occur. Therefore, specimen handling is extremely important. In patients in whom the disease is unlikely, additional sample for testing should be considered after an initial positive result. The performance characteristics of this test have not been evaluated in children. The Aptima Combo2 assay is not intended for the evaluation of suspected sexual abuse or for other medico-legal indications. The ordering provider should assess if the patient had consensual sex without risk of sexual abuse. Consult the [facility] if needed. Contact phone number . Therapeutic failure or success cannot be determined with the Aptima Combo2 assay since nucleic acid may persist following appropriate antimicrobial therapy. The Centers for Disease Control and Prevention (CDC) recommends confirmatory retesting using culture or a different nucleic acid amplification test when positive results occur, if indicated. Testing performed or reported by [facility], a Service of [facility], [address], [place] [address] Urine 05/04/2019 9:08 AM EDT 05/04/2019 5:51 PM EDT us Genevieve Hsieh MD LAB MICROBIOLOGY - GENERAL ORDERABLES Final Result [facility] from Last 3 Months or Most Recently Relevant to Health Maintenance
--- OUTSIDE RECORDS SUMMARY | 2024-10-29 07:15 | XMS_ITS | Encounter Summary ---
Author Organization [facility] Address [address] [place] [address] Phone Care Team Providers Care Pile Driving Technician Name Role Phone Unavailable Primary Care Provider Unavailabl e Encounter Details Date Type Department Care Team (Late st Contact Info) Description 04/23/2017 Conversion Encounter [place] [facility] - [address] [address] Social History Tobacco Use Types Packs/Day Years Used Date Smoking Tobacco: Never Comments:Never smoker Comments Unknown Sex and Gender Information Value [...]
--- OUTSIDE RECORDS SUMMARY | 2024-10-29 07:15 | XMS_ITS | Encounter Summary ---
Author Organization [facility] Address [address] [place] [phone] Phone Care Team Providers Care Community Director Name Role Phone Unavailable Primary Care Provider Unavailabl e Encounter Details Date Type Department Care Team (Late st Contact Info) Description 05/08/2011 Documentation [facility] [place] [facility] [place] [address] Family Medicine, Physician [facility] [place] [address] Social History Tobacco Use Types Packs/Day Years [...]
[2024-10-29 07:37] LABS: MANUAL DIFF FLAG NO
[2024-10-29 08:09] LABS: Basophils Absolute Auto 0.1 X10*3/uL (0.0-0.2); Basophils Percent Auto 1.4 % (0-2); Eosinophils Absolute Auto 0.1 X10*3/uL (0.0-0.4); Eosinophils Percent Auto 2.7 % (0-4); Hematocrit 35.8 % (37.0-47.0); Hemoglobin 11.8 g/dl (12.0-16.0); Imm Gran Abs Auto 0.02 X10*3/uL (0.00-0.03); Imm Gran Pct Auto 0.5 % (0.0-0.4); Lymphocytes Absolute Auto 1.4 X10*3/uL (1.2-4.9); Lymphocytes Percent Auto 30.9 % (20-40); Mean Corpuscular Hemoglobin 29.2 pg (27.0-33.0); Mean Corpuscular Volume 88.6 fL (80.0-98.0); Mean Platelet Volume 10.5 fL (9.4-12.3); Monocytes Absolute Auto 0.5 X10*3/uL (0.1-1.2); Monocytes Percent Auto 12.3 % (2-11); Neutrophils Absolute Auto 2.3 x10*3/uL (2.0-8.3); Neutrophils Percent Auto 52.2 % (45-73); Platelet Count 214 X10*3/uL (160-400); Red Blood Count 4.04 X10*6/uL (4.20-5.50); Red Cell Distribution Width 11.5 % (11.0-16.0); White Blood Count 4.4 X10*3/uL (4.8-10.8)
[2024-10-29 09:14] LABS: Alanine Aminotransferase 19 U/L (0-31); Albumin Level 4.2 g/dL (3.5-5.0); Alkaline Phosphatase 63 U/L (39-117); Anion Gap 12 (12-20); Aspartate Amino Transferase 23 U/L (5-31); Bilirubin Total 0.4 mg/dL (0.0-1.0); Blood Urea Nitrogen 8 mg/dL (9-16); Calcium 9.4 mg/dL (8.4-10.2); Carbon Dioxide 24 mmol/L (22-29); Chloride 108 mmol/L (96-108); Cholesterol 146 mg/dL (<200); Estimated Glomerular Filt Rate > 60; Glucose Random 87 mg/dL (60-115); Potassium 3.7 mmol/L (3.3-5.1); Sodium 140 mmol/L (135-145); Total Protein 7.5 g/dL (6.5-8.0)
[2024-10-29 09:25] LABS: Appearance Urine Cloudy; Color Urine Dark Yellow; Glucose Urine UA Negative (Negative); Leukocyte Esterase Urine Negative (Negative); Nitrite Urine Negative (Negative); PH 5.5 (5.0-9.0); Specific Gravity - Urine 1.025 (1.005-1.025); Urine Blood Negative (Negative); Urine Ketones Negative (Negative); Urine Protein Negative (Neg-Trace)
[2024-10-29 09:32] LABS: TSH reflex Free T4 1.95 uIU/mL (0.32-4.0); Vitamin D 25-OH Total 35.6 ng/mL (>30)
== END 2024-10-29 07:13 | disposition home or self-care (01) ==
LOC: HO.LAB 07:12
PROVIDERS: PCP Internal Medicine; Visit Provider Internal Medicine
DX: Z00.00 Encounter for general adult medical examination without abnormal findings (principal); D64.9 Anemia, unspecified; E78.00 Pure hypercholesterolemia, unspecified; E55.9 Vitamin D deficiency, unspecified; R30.0 Dysuria
CPT/HCPCS: 36415; 80053; 81003; 82306; 82465; 84443; 85025

== ENCOUNTER 2024-11-03 06:11 | Outpatient (REF) | payer OTHER, SELFPAY ==
--- OUTSIDE RECORDS SUMMARY | 2024-11-03 06:14 | XMS_ITS | Encounter Summary ---
Author Organization [facility] Address [address] [place] [address] Phone Care Team Providers Care Supervisor [employer]aking [employer] Name Role Phone Unavailable Primary Care Provider Unavailabl e Encounter Details Date Type Department Care Team (Late st Contact Info) Description 01/16/2014 Documentation [facility] [place] [facility] [place] [address] Family Medicine, Physician [address] [place] [phone] Social History Tobacco Use Types Packs/Day Years [...]
--- OUTSIDE RECORDS SUMMARY | 2024-11-03 06:14 | XMS_ITS | Encounter Summary ---
Author Organization [facility] Address [address] [place] [address] Phone Care Team Providers Care Ui Engineer Name Role Phone Unavailable Primary Care Provider Unavailabl e Encounter Details Date Type Department Care Team (Late st Contact Info) Description 03/29/2015 Documentation [facility] [facility] [place] [facility] [place] [address] Family Medicine, Physician [address] [place] [phone] Social History Tobacco Use Types Packs/Day Years [...]
--- OUTSIDE RECORDS SUMMARY | 2024-11-03 06:14 | XMS_ITS | Encounter Summary ---
Author Organization [facility] Address [address] [place] [address] Phone Care Team Providers Care Special Education Secretary Name Role Phone Unavailable Primary Care Provider Unavailabl e Encounter Details Date Type Department Care Team (Late st Contact Info) Description 04/23/2017 Conversion Encounter [place] [facility] - [address] [address] Social History Tobacco Use Types Packs/Day Years [...]
--- OUTSIDE RECORDS SUMMARY | 2024-11-03 06:14 | XMS_ITS | Clinical Summary ---
Author Organization [facility] Address [address] [place] [phone] Phone Care Team Providers Care Architecture Drafter Name Role Phone Unavailable Primary Care Provider [...] Relation Name Comments ADD / ADHD Brother Kishan Asthma Brother Kishan Asthma Father Amir Asthma [...] Completed 11/04/2019, 05/04/2019 Procedures * Due to [place] Yummy77 law, this organization might not be sharing sensitive test results. Procedure Name Priority Date/Time Associated Diagnosis Comments CHLAMYDIA AND GONORRHEA, AMPLIFIED Routine 05/04/2019 9:08 AM EDT Screening examination for bacterial and spirochetal disease from Last 3 Months or Most Recently Relevant to Health Maintenance Results * Due to [place] Yummy77 law, this organization might not be sharing sensitive test results. * Chlamydia and Gonorrhoea, Amplified (05/04/2019 9:08 AM EDT) Chlamydia Trachomatis, DNA Probe NEGATIVE (NEG) [facility] Comment: No Chlamydia Trachomatis RNA detected in this patient's sample ? (REFERENCE RANGE/NORMAL VALUE: NOT DETECTED) ? Note: This test uses billing analyst- mediated amplification method to detect rRNA from C. Trachomatis URINE GC AMP PROBE NEGATIVE (NEG) [facility] Comment: No Neisseria Gonorrhoeae RNA detected in this patient's sample ? (REFERENCE RANGE/NORMAL VALUE: NOT DETECTED) ? NOTE: This test uses billing analyst-mediated amplification method to detect rRNA from N.Gonorrhoeae. [...] without risk of sexual abuse. Consult the [facility] if needed. Contact phone number . Therapeutic failure or success cannot be determined with the Aptima Combo2 assay since nucleic acid may persist following appropriate antimicrobial therapy. The Centers for Disease Control and Prevention (CDC) recommends confirmatory retesting using culture or a different nucleic acid amplification test when positive results occur, if indicated. Testing performed or reported by [facility], a Service of [facility], [address], [place] [address] Urine 05/04/2019 9:08 AM EDT 05/04/2019 5:51 PM EDT us Genevieve Hsieh MD LAB MICROBIOLOGY - GENERAL ORDERABLES Final Result [facility] from Last 3 Months or Most Recently Relevant to Health Maintenance
[2024-11-06 13:48] LABS: TS Negative Control Passed; TS Panel A 0; TS Panel B 0; TS Positive Control Passed; TSpotTB Negative (Negative)
== END 2024-11-03 06:12 | disposition home or self-care (01) ==
LOC: HO.LAB 06:11
PROVIDERS: PCP Internal Medicine; Visit Provider Internal Medicine
DX: Z11.1 Encounter for screening for respiratory tuberculosis (principal)
CPT/HCPCS: 36415; 86481

== ENCOUNTER 2024-11-07 09:13 | Outpatient (AMB) | payer OTHER, SELFPAY ==
--- NOTE | 2024-11-07 09:25 | A.OFFPC_ITS ---
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: No Accompanied by: Self / Same As Patient Allergies No Known Allergies Allergy (Verified 11/07/24 09:42) Medication List - Last Reconciled 11/07/24 by Johnny Pascual MD cholecalciferol (vitamin D3) 50 mcg PO DAILY 90 days naproxen 250 mg (1/2 x 500 mg) PO Q8H PRN Tobacco use date assessed: 11/07/24 Dental Screening Dental Screen Date: 11/07/24 Did you have a dental visit in the last 12 months?: No Did you have a dental problem in the last 6 months where you did not have access to dental care?: No Was dental information given to patient?: No HPI Annual Exam HPI Details Patient comes in today for her annual physical examination States that she feels okay She denies any headaches or dizziness Denies any chest pains, no SOB No nausea/vomiting, no abdominal pain No change in bowel habits noted Denies any acute urinary symptoms She had her follow up labs done about a week ago - to discuss her results She is up-to-date with her yearly gynecology exam and pap smear and her next gynecology appointment is in April 2025 [facility] Medical History Vitamin D deficiency Positive FLOWER (antinuclear antibody) Surgical History No pertinent past surgical history Family History Mother Diabetes High blood pressure Father No problems noted. Paternal Grandmother History of breast cancer Maternal Grandfather Colon cancer Social History Housing: House Alcohol intake: never Patient Tobacco Use Status: Never used Tobacco e-Cigarette/Vaping Use: Never Used Second Hand Smoke Exposure: No service: No Current occupational status: employed Gender identity: Female Cognitive needs: No Hearing needs: No Vision needs: No Female Reproductive History Menstrual Age of Menarche: 13 Questionnaire PHQ-9 Over the last 2 weeks, how often have you been bothered by any of the following problems? 1. Little interest or pleasure in doing things: not at all 2. Feeling down, depressed, or hopeless: not at all 3. Trouble falling or staying asleep, or sleeping too much: several days 4. Feeling tired or having little energy: several days 5. Poor appetite or overeating: not at all 6. Feeling bad about yourself - or that you are a failure or have let yourself or your family down: not at all 7. Trouble concentrating on things, such as reading the newspaper or watching television: not at all 8. Moving or speaking so slowly that other people could have noticed. Or the opposite - being so fidgety or restless that you have been moving around a lot more than usual: not at all 9. Thoughts that you would be better off or of hurting yourself in some way: not at all Total score: 2 Depression Screening Interpretation: Negative Depression Screening Done: Yes 25382 - PHQ-9 Billing: Yes Source: Developed by Drs. Medardo Singh, Kristine Ventura, Ramón Castañeda and colleagues, with an educational tanya from [employer]. Thrive Questionnaire Date Thrive assessed: 11/07/24 I am a: Patient What is your living situation today?: I have a steady place to live Within the past 12 months, did the food you bought not last and you didn't have the money to get more?: Never true Within the past 12 months, did you worry whether your food would run out before you got money to buy more?: Never true Do you have trouble paying for medicines?: No Do you have trouble getting transportation to medical appointments?: No Do you have trouble paying your heating and electricity bill?: No Do you have trouble taking care of your child, family member or friend?: No Do you have trouble with day-to-day activities such as bathing, preparing meals, shopping, managing finances, etc.?: No Are you currently unemployed and looking for a job?: No Are you interested in more education?: No Please select the resources that you would like help with: None Currently or been in a relationship where the following occur: No concerns reported THRIVE Score: 0 AUDIT C Alcohol Use Questionnaire (AUDIT-C) 1. How often do you have a drink containing alcohol?: Never 2. How many drinks containing alcohol do you have on a typical day when you are drinking?: 1 or 2 3. How often do you have six or more drinks on one occasion?: Never Total Score: 0 Score Reviewed/Action Taken: Yes JOSE-7 AMB Questionnaire JOSE-7 Date JOSE - 7 assessed: 11/07/24 Feeling nervous, anxious, or on edge: 1 = Several days Not being able to stop or control worryin = Several days Worrying too much about different things: 1 = Several days Trouble relaxin = Several days Being so restless that it is hard to sit still: 0 = Not at all Becoming easily annoyed or irritable: 1 = Several days Feeling afraid as if something awful might happen: 0 = Not at all Total JOSE-7 score (0-4 normal; 5-9 mild; 10-14 moderate; 15-21 severe): 5 Source: Developed by Drs. Medardo Singh, Kristine Ventura, Ramón Castañeda and colleagues, with an educational tanya from [employer]. Review of Systems Const Denies chills, Denies fatigue, Denies fever(s), Denies headache(s) and Denies malaise Eyes Denies blurry vision, Denies change in vision, Denies irritation and Denies itchy eyes ENT Denies dysphagia, Denies dizziness, Denies otalgia, Denies headache(s), Denies nasal congestion, Denies neck pain, Denies odynophagia, Denies sinus pain and Denies sore throat Card Denies chest pain, Denies rapid heart rate, Denies irregular heart rhythm, Denies palpitations and Denies dyspnea Resp Denies chest congestion, Denies cough, Denies dyspnea and Denies wheezing GI Denies abdominal pain, Denies bloating, Denies constipation, Denies dysphagia, Denies heartburn, Denies diarrhea, Denies nausea, Denies odynophagia and Denies vomiting Denies hematuria, Denies urinary frequency, Denies dysuria, Denies urinary incontinence and Denies urinary urgency Musc Denies back pain, Denies arthralgias, Denies joint swelling, Denies muscle weakness and Denies neck pain Skin/Breast Denies breast pain, Denies breast mass, Denies change in pigmentation, Denies lesions, Denies rash and Denies unusual bruising Neuro Denies dizziness, Denies headache(s) and Denies paresthesias Psych Denies anxiety and Denies depression Endo Denies fatigue and Denies palpitations Chris/Lymph Denies easy bruising Aller/Immun Denies itchy eyes and Denies wheezing Physical exam (Primary Care) Vital Signs: Last Vital Signs Pulse 76 11/07/24 09:26 BP 100/72 11/07/24 09:26 Pulse Ox 99 11/07/24 09:26 Oxygen Delivery Method Room Air 11/07/24 09:26 BMI result Body Mass Index 20.6 Tobacco/Smoking Status: Tobacco use Status Tobacco use date assessed 11/07/24 11/07/24 09:31 Patient Tobacco Use Status Never used Tobacco 11/07/24 09:31 e-Cigarette/Vaping Use Never Used 11/07/24 09:31 PHQ-9: PHQ-9 Score PHQ-9: Total score 2 11/07/24 09:31 Depression Screening Interpretation: Negative Thrive Assessment: Date of Thrive Assessment Date Thrive assessed 11/07/24 11/07/24 09:31 Currently or been in a relationship where the following occur: No concerns reported Const General: no acute distress, alert and awake Orientation/consciousness: patient oriented x3 HENMT Head: Yes normocephalic and Yes atraumatic Ears: external ears normal, TM's normal bilaterally and EAC's normal General nose exam: No nasal discharge present Face and sinus: Yes normal facial exam and Yes sinuses nontender Teeth and gingiva: dentition normal Throat: Yes posterior oropharynx normal and Yes tonsils normal (no TP congestion) Eyes Eyelids: Yes eyelids normal Conjunctivae: conjunctivae normal Pupils: Equal, round and reactive pupils present EOM: EOMs intact bilaterally Neck Neck: Yes no lymphadenopathy and Yes supple Thyroid: Thyroid normal Resp Auscultation: clear to auscultation bilaterally, no rales and no wheezes Cardio Rate: regular rate Rhythm: regular rhythm Heart sounds: no murmurs GI Palpation (GI): Soft to palpation, nontender and No hepatosplenomegaly present Auscultation: normal bowel sounds General: Yes no CVA tenderness Back/Spine/Pelvis Back: no CVA tenderness Thoracic/Lumbar Spine: thoracic and lumbar spine normal to inspection Skin Lesions: no lesions Rashes: no rashes Neuro General: patient oriented x3, moves all extremities, no focal motor deficits and CN's II-XI intact bilaterally Cranial nerves: Yes Equal, round and reactive pupils present Cognition (Neuro): normal cognition Gait exam (Neuro): Normal gait present Extrem General: Yes no clubbing, cyanosis or edema Results Reviewed Results Reviewed: Laboratory Tests 10/29/24 10/29/24 07:34 07:37 WBC 4.4 L Hgb 11.8 L Hct 35.8 L Plt Count 214 Sodium 140 Potassium 3.7 Creatinine 0.77 Estimated GFR > 60 Random Glucose 87 Calcium 9.4 AST 23 ALT 19 Cholesterol 146 25-OH Vitamin D Total 35.6 TSH 1.95 Ur Specific [place] 1.025 Urine Protein Negative Urine Glucose (UA) Negative Urine Blood Negative Urine Nitrite Negative Ur Leukocyte Esterase Negative Coding Level of Care Code Est Pt Prev Care 18-39y(48857) Diagnoses Annual physical exam Z00.00 Vitamin D deficiency E55.9 Positive FLOWER (antinuclear antibody) R76.8 Anemia due to other cause, not classified D64.89 Anemia type: other cause Other causes of anemia: other cause, not classified Additional Codes PHQ-9 - 51423 - PHQ-9 Billing: Yes ([id number]) Assessment & Plan Assessment & Plan (1) Annual physical exam: Code(s): Z00.00 - Encounter for general adult medical examination without abnormal findings Category: Medical Plan: Results of her labs done about a week ago reviewed and discussed with patient She is up-to-date with her yearly gynecology exam and pap smear Patient adds that she needs to have her yearly TB test done as well - T spot ordered and patient is advised that she can go and get this done at any time and that we will reach out to her if her test comes back with unexpected results (2) Vitamin D deficiency: Code(s): E55.9 - Vitamin D deficiency, unspecified Category: Medical Plan: Corrected Continue Vitamin D3 2000 units QD (3) Positive FLOWER (antinuclear antibody): Code(s): R76.8 - Other specified abnormal immunological findings in serum Category: Medical Plan: Patient currently remains asymptomatic, with no rash and no joint pain symptoms She tested positive for FLOWER twice a couple of years ago and was referred to rheumatology for further evaluation Dr. Carvajal evaluated patient and has reassured her that she does NOT have lupus (double-stranded DNA test came back negative) or any other inflammatory joint diseases and need to just follow up with rheumatology on an as-needed basis (4) Anemia: Code(s): D64.9 - Anemia, unspecified Category: Medical Qualifiers: Anemia type: other cause Other causes of anemia: other cause, not classified Qualified Code(s): D64.89 - Other specified anemias Plan: Her anemia is mild and has corrected in the past with oral iron supplements This is likely multifactorial, including acute blood loss due to her menstruation as well as some degree of iron deficiency Patient is advised to continue taking oral iron supplements daily - Rx refilled Will continue to monitor her CBC regularly Plan To return in 1 year for her next annual physical examination Orders: Orders Lipid Panel 1 Year E78.00 - Pure hypercholesterolemia, unspecified, Z00.00 - Encounter for general adult medical examination without abnormal findings T Spot TB Today Z11.1 - Encounter for screening for respiratory tuberculosis Complete Blood Count Auto Diff 1 Year D64.9 - Anemia, unspecified, Z00.00 - Encounter for general adult medical examination without abnormal findings Comprehensive [place]. Panel Fast 1 Year E78.00 - Pure hypercholesterolemia, unspecified, Z00.00 - Encounter for general adult medical examination without abnormal findings TSH reflex Free T4 1 Year E78.00 - Pure hypercholesterolemia, unspecified, Z00.00 - Encounter for general adult medical examination without abnormal findings UA CC w/rflx Micro + Cult 1 Year R30.0 - Dysuria, Z00.00 - Encounter for general adult medical examination without abnormal findings Vitamin D 25-OH Total 1 Year E55.9 - Vitamin D deficiency, unspecified, Z00.00 - Encounter for general adult medical examination without abnormal findings IRON PROFILE 1 Year D50.9 - Iron deficiency anemia, unspecified, Z00.00 - Encounter for general adult medical examination without abnormal findings Medications: New multivitamin with iron 1 tab PO DAILY 90 days 90 tabs 3RF Refilled cholecalciferol (vitamin D3) 50 mcg PO DAILY 90 days 90 tabs 3RF E55.9 - Vitamin D deficiency, unspecified
[2024-11-07 09:26] VITALS: BP 100/72; PULSE 76; O2SAT 99; BMI 20.6
--- OUTSIDE RECORDS SUMMARY | 2024-11-07 09:54 | XMS_ITS | Clinical Summary ---
Author Organization [facility] Address [address] [place] [address] Phone Care Team Providers Care Dental Office Assistant Name Role Phone Unavailable Primary Care Provider [...] 11/04/2019, 05/04/2019 Procedures * Due to [place] San[place] law, this organization might not be sharing sensitive test results. Procedure Name Priority Date/Time Associated Diagnosis Comments CHLAMYDIA AND GONORRHEA, AMPLIFIED Routine 05/04/2019 9:08 AM EDT Screening examination for bacterial and spirochetal disease from Last 3 Months or Most Recently Relevant to Health Maintenance Results * Due to [place] San[place] law, this organization might not be sharing sensitive test results. * Chlamydia and Gonorrhoea, Amplified (05/04/2019 9:08 AM EDT) Chlamydia Trachomatis, DNA Probe NEGATIVE (NEG) [facility] Comment: No Chlamydia Trachomatis RNA detected in this patient's sample ? (REFERENCE RANGE/NORMAL VALUE: NOT DETECTED) ? Note: This test uses wheel buffer- mediated amplification method to detect rRNA from C. Trachomatis URINE GC AMP PROBE NEGATIVE (NEG) [facility] Comment: No Neisseria Gonorrhoeae RNA detected in this patient's sample ? (REFERENCE RANGE/NORMAL VALUE: NOT DETECTED) ? NOTE: This test uses wheel buffer-mediated amplification method to detect rRNA from N.Gonorrhoeae. [...] without risk of sexual abuse. Consult the [facility] if needed. Contact phone number . Therapeutic failure or success cannot be determined with the Aptima Combo2 assay since nucleic acid may persist following appropriate antimicrobial therapy. The Centers for Disease Control and Prevention (CDC) recommends confirmatory retesting using culture or a different nucleic acid amplification test when positive results occur, if indicated. Testing performed or reported by [facility], a Service of [facility], [address], [place] [address] Urine 05/04/2019 9:08 AM EDT 05/04/2019 5:51 PM EDT us Genevieve Hsieh MD LAB MICROBIOLOGY - GENERAL ORDERABLES Final Result [facility] from Last 3 Months or Most Recently Relevant to Health Maintenance
--- OUTSIDE RECORDS SUMMARY | 2024-11-07 09:54 | XMS_ITS | Encounter Summary ---
Author Organization [facility] Address [address] [place] [address] Phone Care Team Providers Care Fire Prevention Bureau Captain Name Role Phone Unavailable Primary Care Provider Unavailabl e Encounter Details Date Type Department Care Team (Late st Contact Info) Description 04/23/2017 Conversion Encounter [facility] - [address] [address] Social History Tobacco Use Types Packs/Day Years [...]
--- OUTSIDE RECORDS SUMMARY | 2024-11-07 09:54 | XMS_ITS | Encounter Summary ---
Author Organization [facility] Address [address] [place] [address] Phone Care Team Providers Care Senior Microsoft Net Developer Name Role Phone Unavailable Primary Care Provider Unavailabl e Encounter Details Date Type Department Care Team (Late st Contact Info) Description 05/08/2011 Documentation [facility] [place] [facility] [place] [address] Family Medicine, Physician [facility] [place] [address] Social History Tobacco Use Types Packs/Day Years [...]
--- OUTSIDE RECORDS SUMMARY | 2024-11-07 09:54 | XMS_ITS | Encounter Summary ---
Author Organization [facility] Address [address] [place] [address] Phone Care Team Providers Care Grain Buyer Name Role Phone Unavailable Primary Care Provider Unavailabl e Encounter Details Date Type Department Care Team (Late st Contact Info) Description 01/16/2014 Documentation [facility] [place] [address] Family Medicine, Physician [address] [place] [phone] Social History Tobacco Use Types Packs/Day Years [...]
--- OUTSIDE RECORDS SUMMARY | 2024-11-07 09:54 | XMS_ITS | Encounter Summary ---
Author Organization [facility] Address [address] [place] [address] Phone Care Team Providers Care Manager Steel Name Role Phone Unavailable Primary Care Provider Unavailabl e Encounter Details Date Type Department Care Team (Late st Contact Info) Description 03/29/2015 Documentation [facility] [place] [facility] [place] [address] Family Medicine, Physician [address] [place] [address] Social History Tobacco Use Types Packs/Day Years [...]
== END 2024-11-07 10:02 | disposition home or self-care (01) ==
PROVIDERS: PCP Internal Medicine; Visit Provider Internal Medicine
DX: Z00.00 Encounter for general adult medical examination without abnormal findings (principal); E55.9 Vitamin D deficiency, unspecified; R76.8 Other specified abnormal immunological findings in serum; D64.89 Other specified anemias

== ENCOUNTER → 2024-11-07 09:13 | Outpatient (BNVA) | payer OTHER, SELFPAY | PROVIDERS: PCP Internal Medicine; Visit Provider Internal Medicine | DX: Z00.00 Encounter for general adult medical examination without abnormal findings (principal); E55.9 Vitamin D deficiency, unspecified; R76.8 Other specified abnormal immunological findings in serum; D64.89 Other specified anemias | CPT/HCPCS: 96127 ==

== ENCOUNTER 2025-05-03 10:01 | Outpatient (AMB) | payer OTHER, SELFPAY ==
--- NOTE | 2025-05-03 10:45 | MHC.OFFWIV ---
Intake Vital Signs 05/03/25 10:46 Height 5 ft 3 in Weight 115 lb BMI 20.4 BP 96/64 Blood Pressure Location Lt brachial Position Sitting Pulse 103 H Pulse Source Pulse Oximeter Temp 98.4 F Temp Source Oral Pulse Oximetry (%) 100 Oxygen Delivery Method Room Air Intake Visit Reasons: EP-Fever, tonsils are white Patient Tobacco Use Status: Never used Tobacco Allergies No Known Allergies Allergy (Verified 05/03/25 10:50) Do you need a note to return to daycare/school/sports/work: Yes HPI HPI Comments History of Present Illness Details History of Present Illness - The patient is a 24-year-old female presenting with fever and white on her tonsils - She noticed a throat lump on the left side of her neck 5 days ago, initially thought to be related to her menstrual cycle. - Developed a fever, Tmax of 99.8?F, body aches, and was sent home from work yesterday. 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 - Tonsillar swelling with white exudates noted, no pain on swallowing, sneezing present. - Decreased appetite and fullness when eating, contributing to dehydration. - History of menstrual cramps, managed with naproxen as needed. - Denies sinus pain or ear pain or cough. Physical Exam General: Cooperative, healthy appearing, comfortable, no acute distress and well developed Orientation: Patient oriented x3 Limitations: No limitations Head: Normal to inspection Ears: Hearing grossly normal bilaterally, EAC normal, TMs normal Nose: Normal External nose present Face and sinus: Normal facial exam, no sinus TTP Eyes: Appearance normal, both eyes and all related structures Neck: tender cervical lymph node bilat Respiratory: Normal respiratory effort and able to speak in complete sentences, no cough noted Skin: No rashes or lesions noted Neuro: Patient oriented x3 Extremities: Normal to inspection [facility] Medical History Vitamin D deficiency Positive FLOWER (antinuclear antibody) Surgical History No pertinent past surgical history Family History Mother Diabetes High blood pressure Father No problems noted. Paternal Grandmother History of breast cancer Maternal Grandfather Colon cancer Social History Housing: House Alcohol intake: never Patient Tobacco Use Status: Never used Tobacco e-Cigarette/Vaping Use: Never Used Second Hand Smoke Exposure: No service: No Current occupational status: employed Gender identity: Female Cognitive needs: No Hearing needs: No Vision needs: No Female Reproductive History Menstrual Age of Menarche: 13 Review of Systems Const All systems reviewed & are unremarkable except as noted in HPI and below Physical Exam Vital Signs: Last Vital Signs Temp 98.4 F 05/03/25 10:46 Pulse 103 H 05/03/25 10:46 BP 86/62 L 05/03/25 10:53 Pulse Ox 100 05/03/25 10:46 Oxygen Delivery Method Room Air 05/03/25 10:46 BMI result Body Mass Index 20.4 Results AMB Rapid Strep AMB Rapid Strep Negative Last Edit by Ita Anaya CMA on 05/03/25 10:58 Results Reviewed Results Reviewed: Laboratory Last Values Strep Scn Rapid Clinic Negative 05/03/25 10:57 Assessment & Plan Assessment & Plan (1) Strep pharyngitis: Code(s): J02.0 - Streptococcal pharyngitis Plan: Patient was informed and verbally consented to the use of an ambient scribe for clinic note documentation during this visit. 1. 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 - Initiated amoxicillin treatment for 10 days, every 12 hours, despite negative rapid strep test due to clinical symptoms. - Recommended avoiding sharing utensils and practicing good hand hygiene due to contagiousness. 2. Dehydration - Advised to increase fluid intake to prevent further dehydration. - Instructed to monitor heart rate and seek emergency care if unable to maintain hydration orally. 3. Menstrual Cramps - Continue using naproxen for pain relief, ensuring it is spaced from amoxicillin to reduce gastrointestinal side effects. Orders: Orders AMB Rapid Strep Screen Today Anahi Herrera PA-C Z13.9 - Encounter for screening, unspecified Medications: New amoxicillin 500 mg PO Q12H 20 tabs 0RF Cherri Lyman PA-C Coding Level of Care Code Est Pt Level 3 (12703) Diagnoses Strep pharyngitis J02.0
[2025-05-03 10:46] VITALS: BP 96/64; PULSE 103; TEMP 36.9; O2SAT 100; BMI 20.4
--- OUTSIDE RECORDS SUMMARY | 2025-05-03 10:48 | XMS_ITS | Encounter Summary ---
Author Organization [facility] Address [address] [place] [phone] Phone Care Team Providers Care Director Of Golf Name Role Phone Unavailable Primary Care Provider Unavailabl e Encounter Details Date Type Department Care Team (Late st Contact Info) Description 04/23/2017 Conversion Encounter [facility] - [address] [address] Social History Tobacco Use Types Packs/Day Years [...]
--- OUTSIDE RECORDS SUMMARY | 2025-05-03 10:48 | XMS_ITS | Encounter Summary ---
Author Organization [facility] Address [address] [place] [address] Phone Care Team Providers Care Electrical Accessories I Assembler Name Role Phone Unavailable Primary Care Provider Unavailabl e Encounter Details Date Type Department Care Team (Late st Contact Info) Description 01/16/2014 Documentation [facility] [place] [facility] [place] [address] Family Medicine, Physician [address] [place] [phone] Social History Tobacco Use Types Packs/Day Years [...]
--- OUTSIDE RECORDS SUMMARY | 2025-05-03 10:48 | XMS_ITS | Encounter Summary ---
Author Organization [facility] Address [address] [place] [phone] Phone Care Team Providers Care Warehouse Team Member Name Role Phone Unavailable Primary Care Provider Unavailabl e Encounter Details Date Type Department Care Team (Late st Contact Info) Description 05/08/2011 Documentation [facility] [place] [facility] [place] [address] Family Medicine, Physician [facility] [place] [address] Social History Tobacco Use Types Packs/Day Years [...]
--- OUTSIDE RECORDS SUMMARY | 2025-05-03 10:48 | XMS_ITS | Encounter Summary ---
Author Organization [facility] Address [address] [place] [phone] Phone Care Team Providers Care Patient Accounting Representative Name Role Phone Unavailable Primary Care Provider Unavailabl e Encounter Details Date Type Department Care Team (Late st Contact Info) Description 03/29/2015 Documentation [facility] [place] [facility] [place] [address] Family Medicine, Physician [address] [place] [phone] Social History Tobacco Use Types Packs/Day Years [...]
--- OUTSIDE RECORDS SUMMARY | 2025-05-03 10:48 | XMS_ITS | Clinical Summary ---
Author Organization [facility] Address [address] [place] [phone] Phone Care Team Providers Care University Lecturer Name Role Phone Unavailable Primary Care Provider [...] 83 05/04/2019 9:02 AM EDT Temperature 36.7 C (98 F) 05/07/2020 3:50 PM EDT Respiratory Rate - - Oxygen [...] 04/16/2021 04/16/2011, 11/03/2003, 06/25/2001, Additional history exists COVID-19 Vaccine (3 - 2023-2 5 season) 2024 02/09/2021, 01/19/2021 Influenza Vaccines (#1) 2025 07/05/20 22, 08/27/2021, 07/05/2019, Additional history exists Hepatitis B Vaccines Completed 08/10/2000, 01/03/2000, 1999 [...] Completed 11/04/2019, 05/04/2019 Procedures * Due to [place] [employer] law, this organization might not be sharing sensitive test results. Procedure Name Priority Date/Time Associated Diagnosis Comments CHLAMYDIA AND GONORRHEA, AMPLIFIED Routine 05/04/2019 9:08 AM EDT Screening examination for bacterial and spirochetal disease from Last 3 Months or Most Recently Relevant to Health Maintenance Results * Due to [place] [employer] law, this organization might not be sharing sensitive test results. * Chlamydia and Gonorrhoea, Amplified (05/04/2019 9:08 AM EDT) Chlamydia Trachomatis, DNA Probe NEGATIVE (NEG) [facility] Comment: No Chlamydia Trachomatis RNA detected in this patient's sample (REFERENCE RANGE/NORMAL VALUE: NOT DETECTED) Note: This test uses medical technologist hematology- mediated amplification method to detect rRNA from C. Trachomatis URINE GC AMP PROBE NEGATIVE (NEG) [facility] Comment: No Neisseria Gonorrhoeae RNA detected in this patient's sample (REFERENCE RANGE/NORMAL VALUE: NOT DETECTED) NOTE: This test uses medical technologist hematology-mediated amplification method to detect rRNA from N.Gonorrhoeae. [...] without risk of sexual abuse. Consult the [facility] if needed. Contact phone number . Therapeutic failure or success cannot be determined with the Aptima Combo2 assay since nucleic acid may persist following appropriate antimicrobial therapy. The Centers for Disease Control and Prevention (CDC) recommends confirmatory retesting using culture or a different nucleic acid amplification test when positive results occur, if indicated. Testing performed or reported by [facility], a Service of [facility], [address], [place] [address] Urine 05/04/2019 9:08 AM EDT 05/04/2019 5:51 PM EDT us Genevieve Hsieh MD LAB MICROBIOLOGY - GENERAL ORDERABLES Final Result [facility] from Last 3 Months or Most Recently Relevant to Health Maintenance
== END 2025-05-03 11:22 | disposition home or self-care (01) ==
PROVIDERS: PCP Internal Medicine; Visit Provider Physician Assistant
DX: J02.0 Streptococcal pharyngitis (principal); Z13.9 Encounter for screening, unspecified

== ENCOUNTER → 2025-05-03 10:01 | Outpatient (BNVA) | payer OTHER, SELFPAY | PROVIDERS: PCP Internal Medicine; Visit Provider Physician Assistant | DX: J02.0 Streptococcal pharyngitis (principal); E86.0 Dehydration; N94.6 Dysmenorrhea, unspecified | CPT/HCPCS: 87880 ==

== ENCOUNTER 2025-05-10 09:21 | Outpatient (AMB) | payer OTHER, SELFPAY ==
[2025-05-10 09:39] VITALS: BP 102/70; PULSE 80; TEMP 37.1; O2SAT 100; BMI 20.5
--- NOTE | 2025-05-10 09:39 | AM.OFFWIN_ITS ---
Intake Vital Signs 05/10/25 09:39 Height 5 ft 3 in Weight 116 lb BMI 20.5 BP 102/70 Blood Pressure Location Lt brachial Position Sitting Pulse 80 Pulse Source Pulse Oximeter Temp 98.7 F Temp Source Oral Pulse Oximetry (%) 100 Oxygen Delivery Method Room Air Intake Visit Reasons: ep still feel like she has strep Intake Note: pt presents with unresolved throat pain with mild pain swallowing, swollen submental area- on abx x7 days Patient Tobacco Use Status: Never used Tobacco Allergies No Known Allergies Allergy (Verified 05/10/25 09:46) HPI HPI Comments History of Present Illness Details History - The patient is a 24-year-old female pr esenting with a persistent sore throat and swollen lymph nodes. - The sore throat began on the t he previous month and was initially diagnosed as streptococcal pharyngitis. - The patient reports that the sore thro at has not improved with the current antibiotic regimen of amoxicillin, which was prescribed for 10 days. - The patient is on day 6 or 7 of the an tibiotic treatment, with no significant improvement noted. - The patient has been taking Aleve for pain management and has been advised to increase fluid intake to help with lymphadenopathy. - The patient has no history of fever or consistent cough. - there is no sexual activity reported t hat could contribute to the symptoms. Physical Exam General: Cooperative, healthy appearing, comfortable and no acute distress Orientation/consciousness: Patient oriented x3 Limitations: No limitations Head: Normal to inspection Ears: Hearing grossly normal bilaterally, external ears normal Nose: Normal external nose present, Normal nares present and No nasal discharge present Face and sinus: Normal facial exam Mouth: Normal oral and palatal mucosa present and moist mucous membranes Throat: Yes tonsils normal, Yes uvula midline. Posterior oropharynx erythema, bilateral exudates Eyes: Appearance normal, both eyes and all related structures Neck: Normal visual inspection, full ROM, swollen glands present Respiratory: Normal respiratory effort, able to speak in complete sentences, no respiratory distress, not tachypneic, no tripod positioning and no use of accessory muscles Skin: No rashes or lesions noted Neuro: Patient oriented x3 Extremities: Normal to inspection and Yes no clubbing, cyanosis or edema PFSH Medical History Vitamin D deficiency Positive FLOWER (antinuclear antibody) Surgical History No pertinent past surgical history Family History Mother Diabetes High blood pressure Father No problems noted. Paternal Grandmother History of breast cancer Maternal Grandfather Colon cancer Social History Housing: House Alcohol intake: never Patient Tobacco Use Status: Never used Tobacco e-Cigarette/Vaping Use: Never Used Second Hand Smoke Exposure: No service: No Current occupational status: employed Gender identity: Female Cognitive needs: No Hearing needs: No Vision needs: No Female Reproductive History Menstrual Age of Menarche: 13 Review of Systems Const All systems reviewed & are unremarkable except as noted in HPI and below Physical Exam Vital Signs: Last Vital Signs Temp 98.7 F 05/10/25 09:39 Pulse 80 05/10/25 09:39 BP 102/70 05/10/25 09:39 Pulse Ox 100 05/10/25 09:39 Oxygen Delivery Method Room Air 05/10/25 09:39 BMI result Body Mass Index 20.5 Assessment & Plan Assessment & Plan (1) Pharyngitis: Code(s): J02.9 - Acute pharyngitis, unspecified Qualifiers: Pharyngitis/tonsillitis etiology: unspecified etiology Qualified Code(s): J02.9 - Acute pharyngitis, unspecified Plan: Plan VSS, pt well appearing and PE remarkable for bilateral tonsilar edema and exudates. Pharyngitis - Unclear if strep or not, performed throat culture for confirmation, may need to complete course, increase to Augmentin - Continue current antibiotic regimen of amoxicillin for the full 10-day course. - Await throat culture results to confirm diagnosis and adjust treatment if necessary. If negative, we will conduct CT/NG swab (we do not have this swab in the clinic as supplies are on order). - Increase fluid intake and use Aleve for pain management. - Monitor lymph node swelling and continue with increased fluid intake. - Re-evaluate if symptoms persist or worsen after completing the antibiotic course. Patient was informed and verbally consented to the use of an ambient scribe for clinic note documentation during this visit Orders: Orders Throat Culture Today J02.9 - Acute pharyngitis, unspecified Coding Level of Care Code Est Pt Level 3 (19601) Diagnoses Pharyngitis, unspecified etiology J02.9 Pharyngitis/tonsillitis etiology: unspecified etiology
--- OUTSIDE RECORDS SUMMARY | 2025-05-10 10:05 | XMS_ITS | Encounter Summary ---
Author Organization [facility] Address [address] [place] [phone] Phone Care Team Providers Care Budget Consultant Name Role Phone Unavailable Primary Care Provider Unavailabl e Encounter Details Date Type Department Care Team (Late st Contact Info) Description 05/08/2011 Documentation [facility] [place] [facility] [place] [address] Family Medicine, Physician [facility] [place] [address] Social History Tobacco Use Types Packs/Day Years [...]
--- OUTSIDE RECORDS SUMMARY | 2025-05-10 10:05 | XMS_ITS | Encounter Summary ---
Author Organization [facility] Address [address] [place] [address] Phone Care Team Providers Care Blow Mold Operator Name Role Phone Unavailable Primary Care Provider Unavailabl e Encounter Details Date Type Department Care Team (Late st Contact Info) Description 01/16/2014 Documentation [facility] [place] [address] Family Medicine, Physician [address] [place] [phone] Social History Tobacco Use Types Packs/Day Years [...]
--- OUTSIDE RECORDS SUMMARY | 2025-05-10 10:05 | XMS_ITS | Encounter Summary ---
Author Organization [facility] Address [address] [place] [phone] Phone Care Team Providers Care Nuclear Powerplant Supervisor Name Role Phone Unavailable Primary Care Provider Unavailabl e Encounter Details Date Type Department Care Team (Late st Contact Info) Description 04/23/2017 Conversion Encounter [facility] - [address] [address] Social History Tobacco Use Types Packs/Day Years [...]
--- OUTSIDE RECORDS SUMMARY | 2025-05-10 10:05 | XMS_ITS | Clinical Summary ---
Author Organization [facility] Address [address] [place] [phone] Phone Care Team Providers Care Electrical Instrument Maker Name Role Phone Unavailable Primary Care Provider [...] 06/25/2001, Additional history exists Influenza Vaccines (#1) 2025 07/05/20 22, 08/27/2021, 07/05/2019, Additional history exists COVID-19 Vaccine (2024-10 6 season) 2025 02/09/2021, 01/19/2021 Hepatitis B Vaccines Completed 08/10/2000, [...] Completed 11/04/2019, 05/04/2019 Procedures * Due to [place] [employer] law, this organization might not be sharing sensitive test results. Procedure Name Priority Date/Time Associated Diagnosis Comments CHLAMYDIA AND GONORRHEA, AMPLIFIED Routine 05/04/2019 9:08 AM EDT Screening examination for bacterial and spirochetal disease from Last 3 Months or Most Recently Relevant to Health Maintenance Results * Due to [place] [employer] law, this organization might not be sharing sensitive test results. * Chlamydia and Gonorrhoea, Amplified (05/04/2019 9:08 AM EDT) Chlamydia Trachomatis, DNA Probe NEGATIVE (NEG) [facility] Comment: No Chlamydia Trachomatis RNA detected in this patient's sample (REFERENCE RANGE/NORMAL VALUE: NOT DETECTED) Note: This test uses manager grocery- mediated amplification method to detect rRNA from C. Trachomatis URINE GC AMP PROBE NEGATIVE (NEG) [facility] Comment: No Neisseria Gonorrhoeae RNA detected in this patient's sample (REFERENCE RANGE/NORMAL VALUE: NOT DETECTED) NOTE: This test uses manager grocery-mediated amplification method to detect rRNA from N.Gonorrhoeae. [...] risk of sexual abuse. Consult the [facility] if needed. Contact phone number . Therapeutic failure or success cannot be determined with the Aptima Combo2 assay since nucleic acid may persist following appropriate antimicrobial therapy. The Centers for Disease Control and Prevention (CDC) recommends confirmatory retesting using culture or a different nucleic acid amplification test when positive results occur, if indicated. Testing performed or reported by [facility], a Service of [facility], [address], [place] [address] Urine 05/04/2019 9:08 AM EDT 05/04/2019 5:51 PM EDT us Genevieve Hsieh MD LAB MICROBIOLOGY - GENERAL ORDERABLES Final Result [facility] from Last 3 Months or Most Recently Relevant to Health Maintenance
--- OUTSIDE RECORDS SUMMARY | 2025-05-10 10:05 | XMS_ITS | Encounter Summary ---
Author Organization [facility] Address [address] [place] [phone] Phone Care Team Providers Care Wireless Network Engineer Name Role Phone Unavailable Primary Care Provider Unavailabl e Encounter Details Date Type Department Care Team (Late st Contact Info) Description 03/29/2015 Documentation [facility] [place] [facility] [place] [address] Family Medicine, Physician [address] [place] [phone] Social History Tobacco Use Types Packs/Day Years [...]
== END 2025-05-10 10:41 | disposition home or self-care (01) ==
PROVIDERS: PCP Internal Medicine; Visit Provider Physician Assistant
DX: J02.9 Acute pharyngitis, unspecified (principal)

== ENCOUNTER 2025-05-10 09:21 | Outpatient (REF) | payer OTHER, SELFPAY | END 2025-05-10 09:22 | disposition home or self-care (01) | LOC: HO.LAB 09:21 | PROVIDERS: PCP Internal Medicine; Visit Provider Physician Assistant | DX: J02.9 Acute pharyngitis, unspecified (principal) | CPT/HCPCS: 87070 ==